=== PATIENT | female | born 1995 | race African-American/Black ===

== ENCOUNTER 2020-04-14 22:19 | Emergency (ER) | payer MEDICARE, MEDICAID ==
[~2020-04-14] VITALS: Ht 167.6 cm; Wt 84.8 kg
[2020-04-14] MEDS ORDERED: QUETIAPINE FUMA25 MG ORAL (22:25)
[2020-04-14] MEDS ORDERED: KEPPRA500 M4 ORAL (22:25)
[2020-04-14] MEDS ORDERED: LITHIUM CARBON150 MG ORAL (22:25)
--- NOTE | 2020-04-14 22:29 | Emergency Room Report ---
History of Present Illness General Chief Complaint: Seizure Source: Patient Present Illness HPI This 24-year-old female with a history of seizure. She takes 2 antiepileptic medication. She gets seizure frequently. She is supposed to be on 2000 mg of Keppra twice a day but insurance is not covering it. Right now she is only taken 1000 mg twice a day. She presents with chief plaint of seizure. She had a tonic-clonic seizure activity lasting about 30 to 40 seconds. She has vomiting but no oral trauma or incontinence of bowel or urine. She is back to baseline now. She get an aura of metallic taste in her mouth and has a seizure. She gets almost monthly. She does not drive. Her doctor is in the process of getting her approved for Keppra 2000 mg twice a day. Allergies: Coded Allergies: PENICILLINS (Verified Allergy, Unknown, 04/14/20) COVID-19 Screening Contact w/high risk pt: No Recent Travel to affected area: No Experienced COVID-19 symptoms?: No COVID-19 Testing performed STRATEGIES ANALYST: No Patient History Past Medical History: see triage record, old chart reviewed, seizures, psych hx Past Surgical History: none Pertinent Family History: none Social History: Denies: smoking Last Menstrual Period: UNK Now: No Immunizations: other Reviewed Nursing Documentation: PMH: Agreed; PSxH: Agreed Nursing Documentation-PMH History Of Psychiatric Problem: Yes - BIPOLAR Hx Seizures: Yes Review of Systems Eye: Denies: eye pain, blurred vision ENT: Denies: ear pain, nose congestion, throat swelling Respiratory: Denies: cough, shortness of breath Cardiovascular: Denies: chest pain, palpitations Gastrointestinal: Denies: abdominal pain, diarrhea, nausea, vomiting Musculoskeletal: Denies: back pain, joint pain Skin: Denies: rash Neurological: Denies: headache, numbness Endocrine: Denies: increased thirst, increased urine Hematologic/Lymphatic: Denies: easy bruising All Other Systems: negative except mentioned in HPI Physical Exam Vital Signs Date Time Temp Pulse Resp B/P (MAP) Pulse Ox O2 Delivery O2 Flow Rate FiO2 04/14/20 22:20 98.1 16 137/93 (108) 98 Room Air Vitals normal Sp02 EP Interpretation: reviewed, normal General Appearance: well appearing, no apparent distress, alert Head: normocephalic, atraumatic Eyes: bilateral eye PERRL, bilateral eye EOMI ENT: hearing grossly normal, normal pharynx Neck: full range of motion, supple, no meningismus Respiratory: chest non-tender, lungs clear, normal breath sounds Cardiovascular #1: regular rate, rhythm, no murmur Gastrointestinal: normal bowel sounds, non tender, no mass, no organomegaly, no bruit, non-distended Musculoskeletal: back normal, normal range of motion, gait/station normal Psychiatric: mood/affect normal Medical Decision Making Diagnostic Impression: Primary Impression: Epileptic seizure, generalized ER Course Patient with breakthrough seizure. No trauma. I gave her a load of Keppra here. Will discharge home afterward. I see no need for CT scan or lab work. Patient is back to her baseline. Last Vital Signs Date Time Temp Pulse Resp B/P (MAP) Pulse Ox O2 Delivery O2 Flow Rate FiO2 04/14/20 22:20 98.1 16 137/93 (108) 98 Room Air Status: improved Disposition: HOME, SELF-CARE Condition: Stable Patient Instructions: Seizure, Adult Additional Instructions: Follow-up with your doctor in 1 to 2 days but return if symptoms worsen. Graeme Fuentes MD Apr 14, 2020 22:29
[2020-04-14 22:30] VITALS: BP 142/99
[2020-04-14] MEDS ORDERED: levETIRAcetam 1,000mg/NS100ml 100 ML IVPB ONE (22:30)
[2020-04-14 23:15] VITALS: BP 137/95
== END 2020-04-14 23:15 | disposition home or self-care (01) ==
LOC: EDBD 22:19 → EDUNIT# 22:19 → EMR 22:45
DX: G40.409 Other generalized epilepsy and epileptic syndromes, not intractable, without status epilepticus (principal); F31.9 Bipolar disorder, unspecified; Z88.0 Allergy status to penicillin
CPT/HCPCS: 96374; 99284; J1953